=== PATIENT | female | born 1965 | race American Indian/Alaskan Native ===

== ENCOUNTER 2016-08-02 14:58 | Emergency (ER) | payer SELFPAY ==
[2016-08-02] MEDS ORDERED: NACL 0.9% 1000 ML 1,000 ML IV ONE (16:52)
[2016-08-02] MEDS ORDERED: ZOFRAN IV ONE (16:52)
[2016-08-02] MEDS ORDERED: PEPCID IV ONE (16:54)
[2016-08-02 17:13] LABS: Bacteria,Urine 2+ /HPF (Negative); Bilirubin,Urine NEG (Negative); Blood,Urine NEG (Negative); Ketones,Urine NEG (Negative); Leukocyte Esterase,Urine SM (Negative); Mucus,Urine 3+ /HPF; Nitrite,Urine NEG (Negative); Protein,Urine <15 mg/dL mg/dL (Negative)
[2016-08-02] MEDS ORDERED: MORPHINE IV ONE (17:18)
[2016-08-02 17:45] LABS: Basophils % (Auto) 0.3 % (0.0-1.8); Eosinophils % (Auto) 0.8 % (0.0-4.3); Hematocrit 40.1 % (30.3-42.9); Hemoglobin 13.8 gm/dl (10.1-14.3); Mean Corpuscular HGB Conc 35 % (30-34); Mean Corpuscular Hemoglobin 31 pg (28-32); Mean Corpuscular Volume 90 fl (79-97); Platelet Count 271 K/mm3 (140-440); Red Blood Count 4.44 M/mm3 (3.65-5.03); Red Cell Distribution Width 13.1 % (13.2-15.2); White Blood Count 7.9 K/mm3 (4.5-11.0)
[2016-08-02 17:56] LABS: INR 0.99 (0.87-1.13)
[2016-08-02 18:18] LABS: Alanine Aminotransferase 18 units/L (7-56); Albumin 3.8 g/dL (3.9-5); Albumin/Globulin Ratio 0.9 %; Alkaline Phosphatase 105 units/L (35-129); Amylase 72 units/L (27-131); Anion Gap 17 mmol/L; BUN/Creatinine Ratio 21.66; Bilirubin,Total 0.3 mg/dL (0.1-1.2); Blood Urea Nitrogen 13 mg/dL (7-17); Carbon Dioxide 26 mmol/L (22-30); Chloride 99.4 mmol/L (98-107); Glucose 75 mg/dL (65-100); Lipase 38 units/L (13-60); Potassium 3.8 mmol/L (3.6-5.0); Sodium 139 mmol/L (137-145)
[2016-08-02 18:19] LABS: Bilirubin,Direct < 0.2 mg/dL (0-0.2); Bilirubin,Indirect 0.1 mg/dL
[2016-08-02] MEDS ORDERED: ALUM-MAG HYDROX-SIMETH 200-200-20MG/5ML PO ONE (18:35)
[2016-08-02] MEDS ORDERED: LIDOCAINE VISCOUS 2% PO ONE (18:35)
--- NOTE | 2016-08-02 18:40 | Emergency Department Report ---
<LOIS INFANTE - Last Filed: 08/02/16 21:32> ED Abdominal Pain HPI - General Chief Complaint: Abdominal Pain Stated Complaint: FACIAL SWOLLEN/BACK PAIN/UPPER STOMACH PAIN/VOMITI Time Seen by Provider: 08/02/16 16:42 Source: patient Mode of arrival: Ambulatory Limitations: No Limitations - History of Present Illness Initial Comments: 11-year-old female past medical history hypertension, hyperlipidemia, arthritis presents with complaint of 4 days of nausea, vomiting, epigastric discomfort/ burning. Patient denies any fever or chills no chest pain or shortness of breath. Patient states she was recently at [facility] emergency room for diffuse musculoskeletal pain secondary to arthritis and placed on steroids. Patient states that for the last 3-4 days she has had epigastric burning nausea, difficulty tolerating liquid. Denies any fever or chills no dysuria. Denies any abdominal trauma. Onset/Timin -: days(s) Location: diffuse, epigastric Radiation: none Severity: moderate Severity scale (0 -10): 8 Quality: burning Consistency: constant Improves With: nothing Worsens With: eating Associated Symptoms: denies other symptoms - Related Data Previous Rx's Medication Instructions Recorded Last Taken Type Aspirin [Aspirin BABY CHEW TAB] 81 mg PO QDAY #30 tab.chew 07/31/15 Unknown Rx AtorvaSTATin [Lipitor] 20 mg PO HS #30 tablet 07/31/15 Unknown Rx HYDROcodone/APAP 5-325 [[place] 1 each PO Q6H PRN #20 tablet 04/26/16 Unknown Rx 5-325 mg TAB] Bismuth Subsalicylate 10 mg PO QID PRN #1 bottle 08/02/16 Unknown Rx [Pepto-Bismol] Famotidine [Pepcid] 20 mg PO BID #28 tablet 08/02/16 Unknown Rx Lansoprazole [Prevacid] 15 mg PO QDAY #14 cap 08/02/16 Unknown Rx Ondansetron [Zofran Odt] 4 mg PO Q8H PRN #12 tab.rapdis 08/02/16 Unknown Rx amLODIPine [Norvasc] 10 mg PO DAILY #30 tab 08/02/16 Unknown Rx Allergies Allergy/AdvReac Type Severity Reaction Status Date / Time No Known Allergies Allergy Verified 04/25/16 15:48 ED Review of Systems ROS: Stated complaint: FACIAL SWOLLEN/BACK PAIN/UPPER STOMACH PAIN/VOMITI Other details as noted in HPI Constitutional: denies: chills, fever Eyes: denies: eye pain, eye discharge, vision change ENT: denies: ear pain, throat pain Respiratory: denies: cough, shortness of breath, wheezing Cardiovascular: denies: chest pain, palpitations Endocrine: no symptoms reported Gastrointestinal: abdominal pain, nausea. denies: diarrhea Genitourinary: denies: urgency, dysuria, discharge Musculoskeletal: denies: back pain, joint swelling, arthralgia Skin: denies: rash, lesions Neurological: denies: headache, weakness, paresthesias Psychiatric: denies: anxiety, depression Hematological/Lymphatic: denies: easy bleeding, easy bruising ED Past Medical Hx - Past Medical History Previous Medical History?: Yes Hx Hypertension: Yes Hx CVA: Yes (TIA in 2009) Hx Congestive Heart Failure: No Hx Diabetes: No Hx Arthritis: Yes Hx Kidney Stones: Yes (x2) Hx Asthma: No Hx COPD: No - Surgical History Past Surgical History?: Yes Additional Surgical History: tubal ligation 1989 - Social History Smoking Status: Never Smoker Substance Use Type: Alcohol - Medications Home Medications: Home Medications Medication Instructions Recorded Confirmed Last Taken Type Aspirin [Aspirin BABY CHEW TAB] 81 mg PO QDAY #30 tab.chew 07/31/15 Unknown Rx AtorvaSTATin [Lipitor] 20 mg PO HS #30 tablet 07/31/15 Unknown Rx HYDROcodone/APAP 5-325 [[place] 1 each PO Q6H PRN #20 tablet 04/26/16 Unknown Rx 5-325 mg TAB] Bismuth Subsalicylate 10 mg PO QID PRN #1 bottle 08/02/16 Unknown Rx [Pepto-Bismol] Famotidine [Pepcid] 20 mg PO BID #28 tablet 08/02/16 Unknown Rx Lansoprazole [Prevacid] 15 mg PO QDAY #14 cap 08/02/16 Unknown Rx Ondansetron [Zofran Odt] 4 mg PO Q8H PRN #12 tab.rapdis 08/02/16 Unknown Rx amLODIPine [Norvasc] 10 mg PO DAILY #30 tab 08/02/16 Unknown Rx ED Physical Exam - General Limitations: No Limitations General appearance: alert, in no apparent distress - Head Head exam: Present: atraumatic, normocephalic - Eye Eye exam: Present: normal appearance, PERRL, EOMI - ENT ENT exam: Present: mucous membranes moist - Neck Neck exam: Present: normal inspection - Respiratory Respiratory exam: Present: normal lung sounds bilaterally. Absent: respiratory distress - Cardiovascular Cardiovascular Exam: Present: regular rate, normal rhythm. Absent: systolic murmur, diastolic murmur, rubs, gallop - GI/Abdominal GI/Abdominal exam: Present: soft, tenderness (diffuse tenderness along the entire abdomen mild, no focal area of tenderness), normal bowel sounds - Rectal Rectal exam: Present: deferred - Extremities Exam Extremities exam: Present: normal inspection - Back Exam Back exam: Present: normal inspection - Neurological Exam Neurological exam: Present: alert, oriented X3, CN II-XII intact, normal gait - Psychiatric Psychiatric exam: Present: normal affect, normal mood - Skin Skin exam: Present: warm, dry, intact, normal color. Absent: rash ED Course Vital Signs 08/02/16 08/02/16 08/02/16 15:04 17:48 19:34 Temperature 97.7 F Pulse Rate 104 H 78 76 Respiratory 16 16 15 Rate Blood Pressure 135/93 Blood Pressure 123/85 [Right] O2 Sat by Pulse 98 98 Oximetry 08/02/16 08/02/16 08/02/16 20:00 20:31 21:00 Temperature Pulse Rate 75 71 Respiratory 13 14 20 Rate Blood Pressure 106/68 111/70 Blood Pressure [Right] O2 Sat by Pulse 100 100 100 Oximetry ED Medical Decision Making - Lab Data Result diagrams: 08/02/16 17:29 08/02/16 17:29 - Medical Decision Making A/P: Abdominal pain, GERD symptoms 1-as patient was recently placed on steroids for her arthritis likely induced gastritis/GERD. Epigastric pain is burning and patient experienced significant relief with GI cocktail, fluid and Zofran. States she currently does not have any epigastric abdominal pain. 2-labs BMP, CBC, amylase, lipase, hepatic panel, troponin, CK-MB within normal limits. Chest x-ray UA within normal limits EKG sinus rhythm rate of 73. HEART Score Low Score (0-3 points) Risk of MACE of 0.9-1.7%. I advised pt she should f /u with her PCP and cardiology as an outpt. 3-Pepcid, Prevacid, Zofran when necessary 4-follow up with primary care doctor this week. I advised patient to return to the ED if she experiences any chest pain shortness of breath diaphoresis palpitations worsened abdominal pain and inability to tolerate anything by mouth. 4 discharge patient is tolerating oral fluids without any difficulty no episodes of nausea or vomiting since I examined the patient. 5-case discussed with Dr. Kendall 6- patient requesting refill on her amlodipine states that she ran out of her medicine and will follow up with her primary doctor this week Critical care attestation.: If time is entered above; I have spent that time in minutes in the direct care of this critically ill patient, excluding procedure time. ED Disposition Disposition: DISCHARGED TO HOME OR SELFCARE Is pt being admited?: No Does the pt Need Aspirin: No Condition: Stable Instructions: Diet for Ulcers and Gastritis (ED), Gastroesophageal Reflux Disease (ED), Abdominal Pain (ED) Prescriptions: amLODIPine [Norvasc] 10 mg PO DAILY #30 tab Bismuth Subsalicylate [Pepto-Bismol] 10 mg PO QID PRN #1 bottle PRN Reason: Indigestion Famotidine [Pepcid] 20 mg PO BID #28 tablet Lansoprazole [Prevacid] 15 mg PO QDAY #14 cap Ondansetron [Zofran Odt] 4 mg PO Q8H PRN #12 tab.rapdis PRN Reason: Nausea Referrals: PRIMARY CARE, [Primary Care Provider] - 3-5 Days JOHN MARTINEZ MD [Staff Physician] - 3-5 Days [facility] [Outside] - 3-5 Days LYNNE EATON MD [Staff Physician] - 3-5 Days Forms: Work/School Release Form(ED) Time of Disposition: 21:17 <MARITO KENDALL - Last Filed: 08/02/16 21:47> ED Abdominal Pain HPI - History of Present Illness Initial Comments: 51 year old female (not 11) ED Medical Decision Making - Lab Data Result diagrams: 08/02/16 17:29 08/02/16 17:29
[2016-08-02 19:14] LABS: Creatine Kinase MB 1.6 ng/mL (0.0-4.0)
[2016-08-02 22:18] VITALS: BP 129/81
--- NOTE | 2016-08-03 09:11 | XRay Report ---
Chest 2 views: Compared to 04/26/16. History: Epigastric pain. Findings: Normal cardiomediastinal silhouette. Trachea is midline. No consolidation, pneumothorax or pleural effusion. Impression: No acute cardiopulmonary findings.
== END 2016-08-02 21:35 | disposition home or self-care (01) ==
LOC: ED 14:58
DX: R11.2 Nausea with vomiting, unspecified (principal); R10.84 Generalized abdominal pain; I10 Essential (primary) hypertension; I63.9 Cerebral infarction, unspecified; M19.90 Unspecified osteoarthritis, unspecified site; Z79.82 Long term (current) use of aspirin
CPT/HCPCS: 36415; 71020; 80048; 80074; 82140; 82150; 82550; 82553; 83690; 84484; 85025; 85610; 87086; 93005; 93010; 96374; 96375; 99284; J2270; J2405; J7030

== ENCOUNTER 2019-01-22 13:21 | Emergency (ER) | payer MEDICARE ==
--- NOTE | 2019-01-22 13:47 | Event Note ---
ED Screening Note Date of service: 01/22/19 Time: 13:46 ED Screening Note: This is a 53 y.o. F. that presents to the ER with generalized pain x 1 day. PMH of fibromyalgia and arthritis. This initial assessment/diagnostic orders/clinical plan/treatment(s) is/are subject to change based on patients health status, clinical progression and re- assessment by fellow clinical providers in the ED. Further treatment and workup at subsequent clinical providers discretion. Patient/guardian urged not to elope from the ED as their condition may be serious if not clinically assessed and managed. Initial orders include:
[2019-01-22] MEDS ORDERED: TORADOL IV ONE (14:24)
[2019-01-22] MEDS ORDERED: DECADRON IV ONE (14:24)
[2019-01-22] MEDS ORDERED: FLEXERIL PO ONE (14:24)
[2019-01-22] MEDS ORDERED: NACL 0.9% 1000 ML 1,000 ML IV ONE (14:24)
--- NOTE | 2019-01-22 14:44 | Emergency Department Report ---
ED General Adult HPI - General Chief complaint: Pain General Stated complaint: generalized body aches Time Seen by Provider: 01/22/19 13:43 Source: patient Mode of arrival: Ambulatory Limitations: No Limitations - History of Present Illness Initial comments: Patient is a 53-year-old female who presents to the emergency room complaints of generalized body aches that began yesterday. She states she has pain in "all of her joints". She states it began yesterday after getting her nails done. she has associated generalized fatigue and generalized weakness. She has a past medical history of arthritis and fibromyalgia. she walks with a walker. She s tates that she takes "gabapentin and other medications." She states that she takes prednisone during flares but is not currently on it. The patient states that she sees a edge beader at [facility]. She does not report any nausea, vomiting, diarrhea, fever, abdominal pain, chest pain, shortness of breath, headache, dizziness, urinary symptoms. - Related Data Previous Rx's Medication Instructions Recorded Last Taken Type Aspirin [Aspirin BABY CHEW TAB] 81 mg PO QDAY #30 tab.chew 07/31/15 Unknown Rx AtorvaSTATin [Lipitor] 20 mg PO HS #30 tablet 07/31/15 Unknown Rx HYDROcodone/APAP 5-325 [[place] 1 each PO Q6H PRN #20 tablet 04/26/16 Unknown Rx 5-325 mg TAB] Bismuth Subsalicylate 10 mg PO QID PRN #1 bottle 08/02/16 Unknown Rx [Pepto-Bismol] Famotidine [Pepcid] 20 mg PO BID #28 tablet 08/02/16 Unknown Rx Lansoprazole [Prevacid] 15 mg PO QDAY #14 cap 08/02/16 Unknown Rx Ondansetron [Zofran Odt] 4 mg PO Q8H PRN #12 tab.rapdis 08/02/16 Unknown Rx amLODIPine [Norvasc] 10 mg PO DAILY #30 tab 08/02/16 Unknown Rx Cyclobenzaprine [Flexeril] 10 mg PO QHS PRN #10 tablet 01/22/19 Unknown Rx Naproxen [Naprosyn TAB] 500 mg PO BID PRN #20 tablet 01/22/19 Unknown Rx predniSONE [Deltasone] 40 mg PO QDAY 7 Days #14 tab 01/22/19 Unknown Rx Allergies Allergy/AdvReac Type Severity Reaction Status Date / Time No Known Allergies Allergy Verified 04/25/16 15:48 ED Review of Systems ROS: Stated complaint: CHEST PAIN/DIZZINESS Other details as noted in HPI Comment: All other systems reviewed and negative ED Past Medical Hx - Past Medical History Hx Hypertension: Yes Hx CVA: Yes (TIA in 2009) Hx Congestive Heart Failure: No Hx Diabetes: No Hx Arthritis: Yes Hx Kidney Stones: Yes (x2) Hx Asthma: No Hx COPD: No Additional medical history: fibromyalgia - Surgical History Additional Surgical History: tubal ligation 1989, - Social History Smoking Status: Never Smoker Substance Use Type: None - Medications Home Medications: Home Medications Medication Instructions Recorded Confirmed Last Taken Type Aspirin [Aspirin BABY CHEW TAB] 81 mg PO QDAY #30 tab.chew 07/31/15 Unknown Rx AtorvaSTATin [Lipitor] 20 mg PO HS #30 tablet 07/31/15 Unknown Rx HYDROcodone/APAP 5-325 [[place] 1 each PO Q6H PRN #20 tablet 04/26/16 Unknown Rx 5-325 mg TAB] Bismuth Subsalicylate 10 mg PO QID PRN #1 bottle 08/02/16 Unknown Rx [Pepto-Bismol] Famotidine [Pepcid] 20 mg PO BID #28 tablet 08/02/16 Unknown Rx Lansoprazole [Prevacid] 15 mg PO QDAY #14 cap 08/02/16 Unknown Rx Ondansetron [Zofran Odt] 4 mg PO Q8H PRN #12 tab.rapdis 08/02/16 Unknown Rx amLODIPine [Norvasc] 10 mg PO DAILY #30 tab 08/02/16 Unknown Rx Cyclobenzaprine [Flexeril] 10 mg PO QHS PRN #10 tablet 01/22/19 Unknown Rx Naproxen [Naprosyn TAB] 500 mg PO BID PRN #20 tablet 01/22/19 Unknown Rx predniSONE [Deltasone] 40 mg PO QDAY 7 Days #14 tab 01/22/19 Unknown Rx ED Physical Exam - General Limitations: No Limitations General appearance: alert, in no apparent distress - Head Head exam: Present: atraumatic, normocephalic - Eye Eye exam: Present: normal appearance, PERRL, EOMI - ENT ENT exam: Present: mucous membranes moist - Respiratory Respiratory exam: Present: normal lung sounds bilaterally. Absent: respiratory distress, wheezes, rales, rhonchi, stridor, chest wall tenderness, accessory muscle use, decreased breath sounds, prolonged expiratory - Cardiovascular Cardiovascular Exam: Present: regular rate, normal rhythm, normal heart sounds. Absent: systolic murmur, diastolic murmur, rubs, gallop - GI/Abdominal GI/Abdominal exam: Present: soft, normal bowel sounds. Absent: distended, tenderness, guarding, rebound, rigid - Neurological Exam Neurological exam: Present: alert, oriented X3 - Psychiatric Psychiatric exam: Present: normal affect, normal mood - Skin Skin exam: Present: warm, dry, intact ED Course Vital Signs 01/22/19 01/22/19 01/22/19 13:43 15:20 18:05 Temperature 97.5 F L 97.9 F Pulse Rate 85 82 Respiratory 17 18 18 Rate Blood Pressure 139/92 Blood Pressure 142/96 [Left] O2 Sat by Pulse 100 100 Oximetry ED Medical Decision Making - Lab Data Result diagrams: 01/22/19 14:49 01/22/19 14:49 Lab Results 01/22/19 01/22/19 01/22/19 Range/Units 14:49 14:49 16:07 WBC 5.3 (4.5-11.0) K/mm3 RBC 4.67 (3.65-5.03) M/mm3 Hgb 14.5 H (10.1-14.3) gm/dl Hct 43.3 H (30.3-42.9) % MCV 93 (79-97) fl MCH 31 (28-32) pg MCHC 33 (30-34) % RDW 13.7 (13.2-15.2) % Plt Count 244 (140-440) K/mm3 Lymph % (Auto) 54.6 H (13.4-35.0) % [place] % (Auto) 6.2 (0.0-7.3) % Eos % (Auto) 1.4 (0.0-4.3) % Baso % (Auto) 0.8 (0.0-1.8) % Lymph # 2.9 (1.2-5.4) K/mm3 [place] # 0.3 (0.0-0.8) K/mm3 Eos # 0.1 (0.0-0.4) K/mm3 Baso # 0.0 (0.0-0.1) K/mm3 Seg Neutrophils % 37.0 L (40.0-70.0) % Seg Neutrophils # 2.0 (1.8-7.7) K/mm3 Sodium 141 (137-145) mmol/L Potassium 4.1 (3.6-5.0) mmol/L Chloride 106.4 (98-107) mmol/L Carbon Dioxide 25 (22-30) mmol/L Anion Gap 14 mmol/L BUN 11 (7-17) mg/dL Creatinine 0.7 (0.7-1.2) mg/dL Estimated GFR > 60 ml/min BUN/Creatinine Ratio 16 % Glucose 93 (65-100) mg/dL Calcium 9.8 (8.4-10.2) mg/dL Urine Color Yellow (Yellow) Urine Turbidity Clear (Clear) Urine pH 5.0 (5.0-7.0) Ur Specific [place] 1.023 (1.003-1.030) Urine Protein <15 mg/dl (Negative) mg/dL Urine Glucose (UA) Neg (Negative) mg/dL Urine Ketones Neg (Negative) mg/dL Urine Blood Neg (Negative) Urine Nitrite Neg (Negative) Urine Bilirubin Neg (Negative) Urine Urobilinogen < 2.0 (<2.0) mg/dL Ur Leukocyte Esterase Neg (Negative) Urine WBC (Auto) 1.0 (0.0-6.0) /HPF Urine RBC (Auto) 1.0 (0.0-6.0) /HPF U Epithel Cells (Auto) 2.0 (0-13.0) /HPF Urine Mucus 2+ /HPF - Medical Decision Making Patient is a 53-year-old female who presents to the emergency room complaints of generalized body aches that began yesterday. She states she has pain in "all of her joints". She states it began yesterday after getting her nails done. she has associated generalized fatigue and generalized weakness. She has a past medical history of arthritis and fibromyalgia. she walks with a walker. She states that she takes "gabapentin and other medications." She states that she takes prednisone during flares but is not currently on it. The patient states that she sees a edge beader at [facility]. She does not report any nausea, vomiting, diarrhea, fever, abdominal pain, chest pain, shortness of breath, headache, dizziness, urinary symptoms. vitals are stable. labs WNL. UA is normal. pt given toradol, dexamethasone, 1L of fluids, and flexeril while in the ED. states her symptoms improved. pt sent home on flexeril, naproxen, and prednisone. advised pt to please take medication as prescribed. Do not drive or operate machinery while taking muscle relaxer. please follow-up with your primary care doctor and edge beader in the next 2-3 days. Return to the emergency room for any new or worsening symptoms. - Differential Diagnosis arthritis, fibromyaglia Critical care attestation.: If time is entered above; I have spent that time in minutes in the direct care of this critically ill patient, excluding procedure time. ED Disposition Clinical Impression: Generalized body aches Arthralgia Qualifiers: Joint pain location: unspecified Qualified Code(s): M25.50 - Pain in unspecified joint Disposition: DC-01 TO HOME OR SELFCARE Is pt being admited?: No Does the pt Need Aspirin: No Condition: Stable Instructions: Arthralgia (ED) Additional Instructions: Please take medication as prescribed. Do not drive or operate machinery while taking muscle relaxer. please follow-up with your primary care doctor and edge beader in the next 2-3 days. Return to the emergency room for any new or worsening symptoms. Prescriptions: Cyclobenzaprine [Flexeril] 10 mg PO QHS PRN #10 tablet PRN Reason: body aches predniSONE [Deltasone] 40 mg PO QDAY 7 Days #14 tab Naproxen [Naprosyn TAB] 500 mg PO BID PRN #20 tablet PRN Reason: pain Referrals: ROSETTA LEIGH MD [Primary Care Provider] - 2-3 Days your, edge beader [Other] - 2-3 Days Time of Disposition: 16:47 Print Language: CHILEAN
[2019-01-22 15:09] LABS: Basophils % (Auto) 0.8 % (0.0-1.8); Eosinophils # (Auto) 0.1 K/mm3 (0.0-0.4); Eosinophils % (Auto) 1.4 % (0.0-4.3); Hematocrit 43.3 % (30.3-42.9); Hemoglobin 14.5 gm/dl (10.1-14.3); Lymphocytes # (Auto) 2.9 K/mm3 (1.2-5.4); Lymphocytes % (Auto) 54.6 % (13.4-35.0); Mean Corpuscular HGB Conc 33 % (30-34); Mean Corpuscular Volume 93 fl (79-97); Monocytes # (Auto) 0.3 K/mm3 (0.0-0.8); Monocytes % (Auto) 6.2 % (0.0-7.3); Red Blood Count 4.67 M/mm3 (3.65-5.03); Red Cell Distribution Width 13.7 % (13.2-15.2)
[2019-01-22 15:24] LABS: BUN/Creatinine Ratio 16; Blood Urea Nitrogen 11 mg/dL (7-17); Calcium 9.8 mg/dL (8.4-10.2); Hemolysis Index 32
[2019-01-22 15:34] LABS: Platelet Count 244 K/mm3 (140-440)
[2019-01-22 16:20] LABS: Bilirubin,Urine NEG (Negative); Blood,Urine NEG (Negative); Color,Urine Yellow (Yellow); Mucus,Urine 2+ /HPF; Protein,Urine <15 mg/dL mg/dL (Negative); Urobilinogen,Urine < 2.0 mg/dL (<2.0)
[2019-01-22 18:07] VITALS: BP 142/96
== END 2019-01-22 18:07 | disposition home or self-care (01) ==
LOC: ED 13:21
DX: M25.50 Pain in unspecified joint (principal); R53.1 Weakness; R42 Dizziness and giddiness; R53.83 Other fatigue; I10 Essential (primary) hypertension; Z86.73 Personal history of transient ischemic attack (TIA), and cerebral infarction without residual deficits; Z98.51 Tubal ligation status; Z87.442 Personal history of urinary calculi; Z79.899 Other long term (current) drug therapy
CPT/HCPCS: 36415; 80048; 81001; 85025; 96361; 96374; 96375; 99283; J1100; J1885; J7030